=== PATIENT | male | born 1985 | race Caucasian/White ===

== ENCOUNTER 2018-05-28 17:31 | Emergency (ER) | payer BC ==
[~2018-05-28] VITALS: Ht 167.6 cm; Wt 67.3 kg
[2018-05-28 17:39] VITALS: TEMP 98.1
[2018-05-28 19:10] LABS: HEMATOCRIT 41.4 % (42.0-52.0); HEMOGLOBIN 14.6 g/dl (13.5-18.0); MEAN CELL VOLUME 94 fl (80.0-100.0); MEAN CORPUSCULAR HEMOGLOBIN 33 pg (27.0-31.0); MEAN CORPUSCULAR HGB CONC 35 g/dl (33.0-37.0); MEAN PLATELET VOLUME 8.8 fl (7.4-10.4); PLATELET COUNT 194 K/mm3 (130-400); PROTHROMBIN TIME 10.9 SECONDS (9.7-12.8); RED BLOOD COUNT 4.39 M/mm3 (4.20-5.60); REDCELL DISTRIBUTION WIDTH-CV 13.1 % (11.5-14.5)
[2018-05-28 19:13] LABS: PARTIAL THROMBOPLASTIN TIME 32.5 SECONDS (26.0-37.0)
[2018-05-28 20:31] VITALS: BP 123/80; PULSE 90
== END 2018-05-28 20:37 | disposition short-term general hospital (02) ==
LOC: COL.ER 17:31
PROVIDERS: Family Medicine
DX: I82.220 Acute embolism and thrombosis of inferior vena cava (principal); R19.09 Other intra-abdominal and pelvic swelling, mass and lump; F17.210 Nicotine dependence, cigarettes, uncomplicated
CPT/HCPCS: J1644

== ENCOUNTER → 2018-05-28 | Outpatient (REF) ==
[~2018-05-28] MED LIST: CEPHALEXIN500 M1 PO; NO HOME MEDICATIONS
[2018-05-28 16:40] LABS: LACTATE DEHYDROGENASE 538 U/L (313-618)
[2018-05-28 17:26] LABS: HCG,QUANTITATIVE < 2 mIU/mL
== END ==
LOC: ZLAB.WCH 16:22
PROVIDERS: Nurse Practitioner Primary Care
DX: Z01.89 Encounter for other specified special examinations (principal)

== ENCOUNTER → 2018-09-14 | Outpatient (CLI) | payer BC | LOC: BHSO 16:02 | DX: F41.1 Generalized anxiety disorder (principal) ==

== ENCOUNTER → 2018-10-12 | Outpatient (CLI) | payer BC | LOC: BHSO 13:57 | DX: F41.1 Generalized anxiety disorder (principal) ==

== ENCOUNTER → 2018-11-16 | Outpatient (CLI) | payer BC | LOC: BHSO 13:58 | DX: F41.1 Generalized anxiety disorder (principal) ==

== ENCOUNTER → 2019-05-03 | Outpatient (CLI) | payer BC | LOC: BHSO 13:01 | DX: F41.1 Generalized anxiety disorder (principal) ==

== ENCOUNTER → 2019-05-29 | Outpatient (CLI) | payer BC | LOC: BHSO 13:01 | DX: F41.1 Generalized anxiety disorder (principal) ==